=== PATIENT | male | born 1940 | race Caucasian/White ===

== ENCOUNTER 2020-06-20 11:14 | Emergency (ER) | payer MEDICARE, OTHER, SELFPAY ==
[2020-06-20] VITALS (8 sets, daily range): BP systolic 188–215; BP diastolic 86–158; PULSE 74–93; RESP 14–20; TEMP 36.7; O2SAT 93–98
[2020-06-20] MEDS: CYCLOBENZAPRINE 10 MG TABLET PO (12:09)
[2020-06-20] MEDS: LIDOCAINE PATCH 1 EACH ADH..PATCH TOP (12:09)
[2020-06-20] MEDS: KETOROLAC 60 MG/2 ML VIAL 30 MG IM (12:09)
[2020-06-20] MEDS: ACETAMINOPHEN 325 MG TABLET 650 MG PO (12:09)
--- NOTE | 2020-06-20 12:55 | ED_ITS ---
HPI - Back Pain/Injury <JYOTI Gross - Last Filed: 06/20/20 13:50> General Chief Complaint: Back Pain/Injury Stated Complaint: right leg/hip/foot pain, 4 months Time Seen by Provider: 06/20/20 11:17 Source: patient Mode of arrival: other (walker) Limitations: no limitations History of Present Illness HPI Narrative: This is a 79-year-old male, former smoker, who has history of BPH , hypertension, left-sided low back pain presents to ED with chief complain of recurring left low back pain radiating to hip and pain in left lower extremity which started 3 weeks ago when he stepped out of bed. Patient reports initial back pain started about 4 months ago and he had completed 17 sessions of physical therapy which helped with his symptoms. Patient now sitting on a toilet to void and not sure if he is emptying his bladder completely. Patient denies saddle anesthesia or incontinence for bladder or stool. Patient denies fever, chills. Patient reports pain worse and night when he is lying flat on bed, straighten his back or leaning to sides. Patient frequently reposition himself and leaning forward and walking with wheelchair helps with the pain. Patient reports bending forward does not worsen the pain. Patient rates pain as 3/10 at this time. Patient used to be very active and hikes up to 7 miles at times about 1 year ago. Patient is hoping to get MRI test done today in ED. he has been taking Percocet 1-2 tabs as needed at night to get sleep along tizanidine as needed up to 3 times a day. Patient recently added [id number] Aleve in addition to his routine regimen. Related Data Home Medications Medication Instructions Recorded Confirmed aspirin [Adult Low Dose Aspirin] 81 mg PO Q OTHER DAY 06/20/20 06/20/20 finasteride 5 mg PO BEDTIME 06/20/20 06/20/[address] [id number] 1 cap PO BID 06/20/20 06/20/20 [Glucosamine Chondroitin] indomethacin 75 mg PO DAILY PRN 06/20/20 06/20/20 losartan 50 mg PO BEDTIME 06/20/20 06/20/20 lutein-zeaxanthin 1 cap PO QAM 06/20/20 06/20/20 uflbvfkt-xif-zphpi-vit K-lycop 1 tab PO QAM 06/20/20 06/20/20 [Men's 50 Plus Multivitamin] oxycodone-acetaminophen 1 - 2 tab PO BEDTIME PRN 06/20/20 06/20/20 tamsulosin 0.4 mg PO BEDTIME 06/20/20 06/20/20 tizanidine 4 - 8 mg PO TID PRN 06/20/20 06/20/20 Previous Rx's Medication Instructions Recorded lidocaine 1 patch TOP DAILY PRN #30 each 06/20/20 Allergies Allergy/AdvReac Type Severity Reaction Status Date / Time No Known Drug Allergies Allergy Verified 06/20/20 11:25 Review of Systems <JYOTI Gross - Last Filed: 06/20/20 13:50> Review of Systems Narrative: General: Denies fever, chills, fatigue, malaise, sweats. Respiratory: Denies dyspnea, cough, wheezing, hemoptysis, sputum. Cardiovascular: Denies chest pain, palpitations, orthopnea, edema. Gastrointestinal: Denies nausea, vomiting, abdominal pain, diarrhea, constipation, melena. : See HPI Musculoskeletal: See HPI Skin: Denies rash, skin lesions, or other. Patient History <JYOTI Gross - Last Filed: 06/20/20 13:50> Medical History BPH (benign prostatic hyperplasia) (Acute) Hypertension (Acute) Lumbar back pain (Acute) Social History Smoking Status: Former smoker Smoking Status: Former smoker alcohol intake frequency: 0-2 drinks per day Substance Use Type: does not use Exam <JYOTI Gross - Last Filed: 06/20/20 13:50> Narrative Exam Narrative: General appearance: well developed, well nourished, in no acute distress. Head: normocephalic, atraumatic, no scalp lesions, non-tender. ENT: Hearing grossly intact. Nose without bleeding, purulent discharge. Airway patent. Neck/Thyroid: neck supple, full range of motion, no visible masses or meningeal signs. No JVD, non-tender without lymphadenopathy. Skin: no suspicious rashes, lesions over visible areas. Warm and dry and appropriate color for ethnicity. Heart: no clubbing, no cyanosis, no edema. S1 and S2 normal. RRR w/o murmurs, clicks, or bruits. Lungs: Breathing even and unlabored. No stridor. No accessory muscles used. Able to speak in full sentences. Chest: normal shape and expansion. Abdomen: non-obese, non-distended. Neurologic: alert and oriented. Cognitive exam, [employer] and PNS grossly intact on informal exam. Psych: good eye contact, normal affect. Initial Vital Signs Initial Vital Signs: Vital Signs Temperature 98.1 F 06/20/20 11:15 Pulse Rate 93 H 06/20/20 11:15 Respiratory Rate 14 06/20/20 11:15 Blood Pressure 210/96 H 06/20/20 11:15 Pulse Oximetry 98 06/20/20 11:15 Back/Spine/Pelvis Back: normal to inspection, back tenderness (left lumbar), No CVA tenderness, No ecchymosis, No erythema, No mass and No warmth Thoracic/Lumbar Spine: No bend over test abnormal, paraspinal tenderness, No thoracic spinal tenderness, No lumbar spinal tenderness, No straight leg raise positive and tilt present <Kwan Saldaña DO - Last Filed: 06/21/20 07:32> Initial Vital Signs Initial Vital Signs: Vital Signs Temperature 98.1 F 06/20/20 11:15 Pulse Rate 93 H 06/20/20 11:15 Respiratory Rate 14 06/20/20 11:15 Blood Pressure 210/96 H 06/20/20 11:15 Pulse Oximetry 98 06/20/20 11:15 Scores <JYOTI Gross - Last Filed: 06/20/20 13:50> GCS [place] coma scale eye opening: Spontaneous Leonila coma scale verbal response: Orientated Leonila coma scale motor response: Obey commands Leonila coma scale total score: 15 Course <JYOTI Gross - Last Filed: 06/20/20 13:50> Orders Ordered: Discontinued Medications Acetaminophen (Tylenol) 650 mg PO NOW ONE Stop: 06/20/20 11:44 Last Admin: 06/20/20 12:09 Dose: 650 mg Documented by: CATE Cyclobenzaprine HCl (Flexeril) 10 mg PO NOW ONE Stop: 06/20/20 11:44 Last Admin: 06/20/20 12:09 Dose: 10 mg Documented by: CATE Ketorolac Tromethamine (Toradol) 30 mg IM NOW ONE Stop: 06/20/20 11:44 Last Admin: 06/20/20 12:09 Dose: 30 mg Documented by: CATE Lidocaine (Lidoderm) 1 each TOP NOW ONE Stop: 06/20/20 11:44 Last Admin: 06/20/20 12:09 Dose: 1 each Documented by: CATE Lidocaine (Lidoderm (Remove Patch)) 1 each TOP BEDTIME SHIREEN Vital Signs Vital signs: Vital Signs - 8 hr 06/20/20 11:15 06/20/20 12:09 06/20/20 12:16 Temperature 98.1 F Pulse Rate 93 H 76 87 Respiratory Rate 14 20 Blood Pressure 210/96 H 215/158 H Pulse Oximetry 98 95 93 06/20/20 12:30 06/20/20 12:45 06/20/20 13:00 Temperature Pulse Rate 80 82 74 Respiratory Rate Blood Pressure 188/86 H 188/86 H Pulse Oximetry 98 96 96 06/20/20 13:15 Temperature Pulse Rate 74 Respiratory Rate Blood Pressure 202/92 H Pulse Oximetry 96 <Kwan Saldaña, DO - Last Filed: 06/21/20 07:32> Orders Ordered: Discontinued Medications Acetaminophen (Tylenol) 650 mg PO NOW ONE Stop: 06/20/20 11:44 Last Admin: 06/20/20 12:09 Dose: 650 mg Documented by: CATE Cyclobenzaprine HCl (Flexeril) 10 mg PO NOW ONE Stop: 06/20/20 11:44 Last Admin: 06/20/20 12:09 Dose: 10 mg Documented by: CATE Ketorolac Tromethamine (Toradol) 30 mg IM NOW ONE Stop: 06/20/20 11:44 Last Admin: 06/20/20 12:09 Dose: 30 mg Documented by: CATE Lidocaine (Lidoderm) 1 each TOP NOW ONE Stop: 06/20/20 11:44 Last Admin: 06/20/20 12:09 Dose: 1 each Documented by: CATE Lidocaine (Lidoderm (Remove Patch)) 1 each TOP BEDTIME SHIREEN Vital Signs Vital signs: Vital Signs - 8 hr 10/26/20 11:15 06/20/20 12:09 06/20/20 12:16 Temperature 98.1 F Pulse Rate 93 H 76 87 Respiratory Rate 14 20 Blood Pressure 210/96 H 215/158 H Pulse Oximetry 98 95 93 06/20/20 12:30 06/20/20 12:45 06/20/20 13:00 Temperature Pulse Rate 80 82 74 Respiratory Rate Blood Pressure 188/86 H 188/86 H Pulse Oximetry 98 96 96 06/20/20 13:15 Temperature Pulse Rate 74 Respiratory Rate Blood Pressure 202/92 H Pulse Oximetry 96 MDM - Back Pain/Injury <JYOTI Gross - Last Filed: 06/20/20 13:50> Differential Diagnosis Differential diagnosis: Likely lumbar radiculopathy, sciatica, pyelonephritis and other (spinal stenosis, cauda equina syndrome) Medical Records Attestation: I reviewed the patient's medical records. Lab Data Attestation: I reviewed the patient's lab results. Labs: Urine Dip Bedside Urine Glucose Negative Bedside Urine Bilirubin - Negative Bedside Urine Ketone - Negative Urine Specific [place] 1.025 Bedside Urine Occult Blood - Negative Bedside Urine pH 6.0 Bedside Urine Protein - Negative Bedside Urine Urobilinogen - Negative Bedside Urine Nitrite - Negative Bedside Urine Leukocytes - Negative Esterase MDM Narrative Medical decision making narrative: This is a 79-year-old male who has medical history of BPH and low back pain presents to ED with urinary frequency and urgency and left-sided nontraumatic low back pain radiating to hip and also left lower leg pain. POC urine test does not indicate an infection. Post void bladder scan eats last than 10 mL of urine in the bladder. No indication for urinary retention at this time. Patient denies weakness, tingling or numbness to bilateral extremities. Patient denies constitutional symptoms. Patient has no history of IV drug use. Patient is ambulatory. Patient is afebrile and hypertensive in ED. physical exam is unremarkable for erythema, mass, or warmth on low back indicating infection. Unfortunately MRI is not obtainable today and this could be arranged by his primary care physician. Patient medicated with lidocaine patch, Tylenol, Toradol IM, and Flexeril which helped his symptoms. Patient discharged to home with lidocaine patch and advised to continue with current pain medication regimen and use Tylenol and or Motrin as needed as baseline. Return precautions were discussed with patient and he was advised to follow-up with primary care physician for low back pain and possible further advanced imaging test and a referral to orthopedist, pain management, and physical therapist. Patient's max blood pressure in ED was 210/96 and patient reports had blood pressure medication previous night. Patient is asymptomatic for chest pain, dizziness, breathing difficulty. Patient also advised to monitor his blood pressure around same time of the days since he may require antihypertensive medication dose adjustment or this is incidental elevated in BP due to pain. Patient also advised to follow-up with primary care physician with urinary urgency and frequency while he is already on 2 medications with finasteride and Flomax and he may require referral to urologist. Return precautions were discussed with patient and he verbalized understanding and agreement with the treatment plan. <Kwan Saldaña DO - Last Filed: 06/21/20 07:32> Lab Data Labs: Urine Dip Bedside Urine Glucose Negative Bedside Urine Bilirubin - Negative Bedside Urine Ketone - Negative Urine Specific [place] 1.025 Bedside Urine Occult Blood - Negative Bedside Urine pH 6.0 Bedside Urine Protein - Negative Bedside Urine Urobilinogen - Negative Bedside Urine Nitrite - Negative Bedside Urine Leukocytes - Negative Esterase Discharge Plan Departure Patient Disposition: Home Clinical Impression: Lumbar back pain, Benign prostatic hyperplasia with urinary frequency Hypertension Qualifiers: Hypertension type: essential hypertension Qualified Code(s): I10 - Essential (primary) hypertension Discharge Date/Time: 06/20/20 13:48 Instructions: Essential Hypertension, DI for Low Back Pain, DI for Benign Prostatic Hyperplasia Activity Restrictions/Additional Instructions: You have been diagnosed with [lumbar back pain, elevated blood pressure, and urinary frequency and urgency with BPH. No indications for bladder infection or urinary retention]. What to do: *Take your medications as directed. Please continue with your current medications for pain regimen. Please use lidocaine patch on affected site which stays on for 12 hours and off for 12 hours. You can take bndj-rft-auwyyaz Tylenol and ibuprofen as needed for baseline pain management. Please do not take more than 3000 mg Tylenol products in 24 hour. *Follow up with your primary care provider in 2-3 days, call for an appointment. Let them know you were seen in the ED and that we asked you to be seen in follow up. *Return to ED if you have any new, worsening, or concerning symptoms, such as [chest pain, breathing difficulty, unable to tolerate fluids, weakness/numbness to bilateral lower extremities, fever, or any acute concerns]. Prescriptions: New lidocaine 5 % adhesive patch,medicated 1 patch TOP DAILY PRN (Reason: back pain) Qty: 30 RF: 0 No Action losartan 50 mg tablet 50 mg PO BEDTIME RF: 0 tizanidine 4 mg tablet 4 - 8 mg PO TID PRN (Reason: Back Pain) RF: 0 aspirin [Adult Low Dose Aspirin] 81 mg Tablet,Delayed Release (Dr/Ec) 81 mg PO Q OTHER DAY RF: 0 oxycodone-acetaminophen 5-325 mg tablet 1 - 2 tab PO BEDTIME PRN (Reason: Back Pain) RF: 0 tamsulosin 0.4 mg capsule 0.4 mg PO BEDTIME RF: 0 indomethacin 75 mg capsule, extended release 75 mg PO DAILY PRN (Reason: Gout) RF: 0 finasteride 5 mg tablet 5 mg PO BEDTIME RF: 0 lutein-zeaxanthin 25-5 mg Capsule 1 cap PO QAM RF: 0 Men's 50 Plus Multivitamin 400-20-370 mcg Tablet 1 tab PO QAM RF: 0 Glucosamine Chondroitin 550-30-1 mg Capsule 1 cap PO BID RF: 0 Referrals: Vinod Oswald DO [Primary Care Provider] - <Kwan Saldaña DO - Last Filed: 06/21/20 07:32> Cosign ED Attending Cosignature Attestation: I was immediately available in the department for consultation. This documentation has been reviewed and I agree with assessment and plan. Supervised by Kwan Saldaña DO
== END 2020-06-20 13:48 | disposition home or self-care (01) ==
PROVIDERS: Emergency Provider Nurse Practitioner Family; PCP Family Medicine
DX: N40.1 Benign prostatic hyperplasia with lower urinary tract symptoms (principal); R35.0 Frequency of micturition; M54.6 Pain in thoracic spine; I10 Essential (primary) hypertension; M25.552 Pain in left hip
CPT/HCPCS: 51798; 81003; 96372; 99283; 99284; J1885

== ENCOUNTER → 2020-06-30 12:52 | Outpatient (CLI) | payer MEDICARE, OTHER, SELFPAY ==
--- NOTE | 2020-06-30 | DI.MRI.S_ITS ---
PROCEDURE: MR LUMBAR SPINE WO CON INDICATIONS: Lumbago with sciatica, left side TECHNIQUE: Noncontrast sagittal T1 spin echo and T2 fast echo, sagittal STIR, axial T1 and T2 fast spin echo through the lumbar spine. In cases with scoliosis, additional coronal T2 fast spin echo may be performed. COMPARISON: None. FINDINGS: Image quality: Excellent. Alignment and Curvature: There is normal bony alignment. Bone Marrow: Reactive endplate changes noted adjacent to the L4-L5 and L5-S1 discs. No acute vertebral body compression fractures. Spinal Cord: Conus medullaris terminates at the L1 level. Visualized cord demonstrates normal signal and size. Paraspinous Soft Tissues: No paravertebral masses. L1-L2: Loss of disc signal. Mild, diffuse disc bulge. Mild narrowing of the central canal. Moderate bilateral neural foraminal narrowing. No neural compression. L2-L3: Loss of disc signal. Mild, diffuse disc bulge. Mild bilateral facet hypertrophy. Mild to moderate narrowing of the central canal. Moderate bilateral neural foraminal narrowing. No neural compression. L3-L4: Loss of disc signal. Mild, diffuse disc bulge. Moderate bilateral facet hypertrophy. Mild ligamentum flavum hypertrophy. Moderate narrowing of the central canal. Moderate to severe bilateral neural foraminal narrowing. No neural compression. L4-L5: Loss of disc signal. Mild, diffuse disc bulge. Moderate bilateral facet hypertrophy. Mild ligamentum flavum hypertrophy. Moderate narrowing of the central canal. Moderate right and severe left neural foraminal narrowing with compression of the exiting left L4 nerve root. L5-S1: Loss of disc signal and height. Mild, diffuse disc bulge. Left foraminal disc protrusion. Disc protrusion encroaches on the neural foramen causing severe foraminal stenosis and compresses the exiting left L5 nerve root. Mild bilateral facet hypertrophy. No central stenosis. Moderate right and severe left neural foraminal narrowing . IMPRESSION: 1. Multilevel degenerative disease. 2. Multilevel facet arthropathy. 3. No significant central canal narrowing. 4. L5-S1 left foraminal disc protrusion which causes severe left neural foraminal narrowing and compression of the exiting left L5 nerve root. Dictated by: Page Lal MD, PhD on 06/30/2020 at 15:24 Approved by: Page Lal MD, PhD on 06/30/2020 at 15:28
== END ==
PROVIDERS: PCP Family Medicine; Referring Provider Family Medicine; Visit Provider Family Medicine
DX: M51.16 Intervertebral disc disorders with radiculopathy, lumbar region (principal); M51.17 Intervertebral disc disorders with radiculopathy, lumbosacral region; M47.26 Other spondylosis with radiculopathy, lumbar region; M47.27 Other spondylosis with radiculopathy, lumbosacral region; M48.061 Spinal stenosis, lumbar region without neurogenic claudication; M48.07 Spinal stenosis, lumbosacral region
CPT/HCPCS: 72148

== ENCOUNTER → 2024-01-09 11:28 | Outpatient (CLI) | payer MEDICARE, OTHER, SELFPAY ==
--- NOTE | 2024-01-09 11:30 | DI.CT.S_ITS ---
PROCEDURE: CT SINUS SCREEN WO CON INDICATIONS: CHRONIC PANSINUSITIS TECHNIQUE: Noncontrast 3.0 mm axial images acquired from the frontal sinuses to the mid-sella, with coronal and sagittal reformats. For radiation dose reduction, the following was used: automated exposure control, adjustment of mA and/or kV according to patient size. COMPARISON: None. FINDINGS: Image quality: Excellent. Maxillary Sinuses: No bony remodeling or destruction. Anix-ml-ukajpaau mucosal thickening can be seen within the inferior left maxillary sinus and there is mild mucosal thickening within the inferior right maxillary sinus. Ethmoid Air Cells: No bony remodeling or destruction. Sinuses are clear. Sphenoid Sinuses: No bony remodeling or destruction. Sinuses are clear. Frontal Sinuses: No bony remodeling or destruction. Sinuses are clear. Ostiomeatal Complexes: The ostiomeatal complexes are patent, yet they are constitutionally narrowed, with bilateral Jigar cells. Miscellaneous: Visualized intra-orbital contents are normal. There is a prominent left-sided judie bullosa present. There is yfya-xl-mdngduyk rightward nasal septal deviation. IMPRESSION: Focal maxillary sinus disease can be seen. The ostiomeatal complexes are patent, yet they are constitutionally narrowed, with bilateral Jigar cells. Dictated by: Fabrice Paul M.D. on 01/09/2024 at 11:37 Approved by: Fabrice Paul M.D. on 01/09/2024 at 11:38
== END ==
PROVIDERS: PCP Family Medicine; Referring Provider Otolaryngology; Visit Provider Otolaryngology
DX: J32.4 Chronic pansinusitis (principal); J34.89 Other specified disorders of nose and nasal sinuses
CPT/HCPCS: 70486

== ENCOUNTER → 2024-04-21 12:00 | Outpatient (CLI) | payer MEDICARE, OTHER, SELFPAY ==
--- NOTE | 2024-04-21 12:01 | DI.MRI.S_ITS ---
PROCEDURE: MR LUMBAR SPINE WO CON INDICATIONS: RADICULOPATHY LUMBAR REGION TECHNIQUE: Noncontrast sagittal T1 spin echo and T2 fast echo, sagittal STIR, and T2 fast spin echo through the lumbar spine. In cases with scoliosis, additional coronal T2 fast spin echo may be performed. COMPARISON: [facility], MR, MR LUMBAR SPINE WO CON, 06/30/2020, 13:20. FINDINGS: Image quality: Excellent. Alignment and Curvature: There is normal bony alignment. Bone Marrow: Marrow is of normal overall signal. No acute vertebral body compression fractures. Spinal Cord: Conus medullaris terminates at the L1-L2 level. Visualized cord demonstrates normal signal and size. Paraspinous Soft Tissues: No paravertebral masses. T12-L1: Mild disc bulge. Facet and ligament hypertrophy. No canal stenosis or foraminal stenosis. L1-L2: Disc bulge. Facet hypertrophy. No canal stenosis or foraminal nerve root impingement. L2-L3: Disc bulge. Facet and ligament hypertrophy. Borderline canal stenosis. No significant foraminal stenosis. L3-L4: Progressive findings. Slight increase in disc bulge. Increase in facet and ligament hypertrophy. Development of a anterior medially directed facet joint cyst off of the left facet. Interval increase in epidural lipomatosis. Moderate to severe canal stenosis. Reference sagittal T2 image 9 of series 2 and axial T2 image 28 of series 6. Moderate bilateral foraminal narrowing with mild flattening deformity on the exiting bilateral L3 nerve roots. L4-L5: Slight interval progression. Disc bulge. Facet and ligament hypertrophy. Increase in epidural lipomatosis. Mild canal stenosis. Ggbp-oi-jdmwsyar bilateral foraminal stenosis. L5-S1: Disc bulge. Facet and ligament hypertrophy. No canal stenosis. Eora-sf-dugmfsfu right foraminal narrowing. Moderate to severe left foraminal narrowing with a degree of left foraminal L5 nerve root impingement. IMPRESSION: 1. Overall, there is slight interval progression of findings. 2. Multilevel underlying facet arthropathy. 3. Progressive canal stenosis, moderate to severe at L3-L4 and mild at L4-L5. 4. Multilevel foraminal narrowing as described above. Findings include moderate bilateral foraminal narrowing at L3-L4 and moderate to severe left foraminal narrowing at L5-S1. Dictated by: Gideon Vaughan M.D. on 04/21/2024 at 15:02 Approved by: Gideon Vaughan M.D. on 04/21/2024 at 15:08
== END ==
PROVIDERS: PCP Family Medicine; Referring Provider Physical Medicine & Rehabilitation Pain Medicine; Visit Provider Physical Medicine & Rehabilitation Pain Medicine
DX: M47.26 Other spondylosis with radiculopathy, lumbar region (principal); M47.27 Other spondylosis with radiculopathy, lumbosacral region; M48.061 Spinal stenosis, lumbar region without neurogenic claudication; M48.07 Spinal stenosis, lumbosacral region
CPT/HCPCS: 72148